=== PATIENT | female | born 1995 | race Caucasian/White ===

== ENCOUNTER 2018-07-23 13:10 | Observation (INO) | payer OTHER ==
[~2018-07-23] VITALS: Ht 168 cm; Wt 74.0 kg
== END 2018-07-23 18:55 | disposition home or self-care (01) ==
LOC: 4S 13:10
PROVIDERS: ADMIT Obstetrics & Gynecology; ATTEND Obstetrics & Gynecology
DX: O62.9 Abnormality of forces of labor, unspecified (principal); Z3A.38 38 weeks gestation of pregnancy

== ENCOUNTER 2018-07-28 02:35 | Inpatient (IN) | payer OTHER ==
[~2018-07-28] VITALS: Ht 167.6 cm; Wt 79.5 kg
[2018-07-28] MEDS ORDERED: OXYTOCIN 20 UNITS/LACT RINGERS 1,000 ML IV ONE (02:46)
[2018-07-28] MEDS ORDERED: LIDOCAINE/PF 1% 30 ML VIAL INJ PRN (03:00)
[2018-07-28] MEDS ORDERED: TERBUTALINE SULFATE 1 MG/ML VIAL SQ PRN (03:00)
[2018-07-28] MEDS ORDERED: AMPICILLIN SODIUM 2 GM/NS 100 ML IV ONE (03:00)
[2018-07-28] MEDS ORDERED: METOCLOPRAMIDE HCL 5 MG/ML 2 ML VIAL IVP PRN (03:00)
[2018-07-28] MEDS ORDERED: CITRIC ACID/SODIUM CITRATE 30 ML SOLUTION UDCUP PO PRN (03:00)
[2018-07-28] MEDS: RINGERS SOLUTION,LACTATED 1,000 ML IV SCH ×2 (03:15→05:09)
[2018-07-28 03:22] VITALS: BP 123/76
[2018-07-28] MEDS ORDERED: OXYTOCIN 30 UNITS/LACT RINGERS 500 ML IV ONE (03:41)
[2018-07-28] MEDS ORDERED: OXYTOCIN 30 UNITS/LACT RINGERS 500 ML IV PRN (03:58)
[2018-07-28] MEDS ORDERED: FentaNYL CITRATE-PF 100 MCG/2 ML VIAL IVP PRN (04:00)
[2018-07-28 04:08] LABS: EOSINOPHILS % (AUTO) 0.3 % (1.0-6.0); HEMATOCRIT 32.1 % (36-46); HEMOGLOBIN 9.9 g/dL (12.0-16.0); LYMPHOCYTES # (AUTO) 2.4 K/uL (1.0-4.8); MEAN CORPUSCULAR HEMOGLOBIN 23.1 pg (26.0-34.0); MEAN CORPUSCULAR HGB CONC 30.8 G/dL (31.0-37.0); MEAN CORPUSCULAR VOLUME 75 fL (80-100); MONOCYTES % (AUTO) 7.4 % (2.0-9.0); NEUTROPHILS # (AUTO) 9.7 K/uL (1.8-7.7); NEUTROPHILS % (AUTO) 74.3 % (40.0-70.0); PLATELET COUNT (AUTO) 161 K/uL (150-450); RED BLOOD CELL COUNT(AUTO) 4.28 MIL/uL (4.00-5.20); RED CELL DISTRIBUTION WIDTH 16.5 % (11.5-14.5)
[2018-07-28] MEDS ORDERED: ROPIVACAINE HCL/PF 0.2% 100 ML ED ONE (04:27)
[2018-07-28] MEDS ORDERED: ONDANSETRON HCL 4 MG/2 ML VIAL IVP PRN (05:00)
[2018-07-28] MEDS ORDERED: ROPIVACAINE HCL/PF 0.2% 100 ML ED PRN (05:00)
[2018-07-28] MEDS ORDERED: DiphenhydrAMINE HCL 50 MG/ML VIAL IVP PRN (05:00)
[2018-07-28 05:09] LABS: PLATELET MORPHOLOGY COMMENT GIANT PLTS PRESENT
[2018-07-28] MEDS ORDERED: AMPICILLIN SODIUM 1 GM/NS 50 ML IV SCH (07:00)
[2018-07-28] MEDS ORDERED: RINGERS SOLUTION,LACTATED 1,000 ML IV ONE (10:29)
[2018-07-28] MEDS ORDERED: BENZOCAINE 20%/MENTHOL 56 GM SPRAY CANISTER TP PRN (10:30)
[2018-07-28] MEDS ORDERED: LANOLIN 7 GM OINTMENT TP PRN (10:30)
[2018-07-28] MEDS ORDERED: GLYCERIN/WITCH HAZEL LEAF 40 PADS JAR TP PRN (10:30)
[2018-07-28] MEDS ORDERED: OxyCODONE HCL/ACETAMINOPHEN 5-325 MG TABLET PO PRN ×2 (10:30)
[2018-07-28] MEDS ORDERED: MEASLES/MUMPS/RUBELLA VACCINE, LIVE 0.5 ML/VIAL SQ ONE (10:30)
[2018-07-28] MEDS: IBUPROFEN 600 MG TABLET PO PRN ×2 (10:44→18:34)
[2018-07-28] MEDS: MAGNESIUM HYDROXIDE SUSPENSION 30 ML UDCUP PO SCH (21:13)
[2018-07-29] MEDS: IBUPROFEN 600 MG TABLET PO PRN (05:21)
[2018-07-29] MEDS: MAGNESIUM HYDROXIDE SUSPENSION 30 ML UDCUP PO SCH (08:44)
[2018-07-29 09:57] LABS: BASOPHILS % (AUTO) 0.2 % (0.0-2.0); EOSINOPHILS % (AUTO) 0.2 % (1.0-6.0); HEMATOCRIT 31.2 % (36-46); HEMOGLOBIN 9.6 g/dL (12.0-16.0); LYMPHOCYTES # (AUTO) 2.3 K/uL (1.0-4.8); MEAN CORPUSCULAR HEMOGLOBIN 23.1 pg (26.0-34.0); MEAN CORPUSCULAR HGB CONC 30.8 G/dL (31.0-37.0); MEAN CORPUSCULAR VOLUME 75 fL (80-100); MONOCYTES # (AUTO) 0.7 K/uL (0.1-1.0); MONOCYTES % (AUTO) 4.9 % (2.0-9.0); NEUTROPHILS # (AUTO) 11.1 K/uL (1.8-7.7); NEUTROPHILS % (AUTO) 78.7 % (40.0-70.0); PLATELET COUNT (AUTO)-OB 158 K/uL (150-450); RED BLOOD CELL COUNT(AUTO) 4.16 MIL/uL (4.00-5.20); RED CELL DISTRIBUTION WIDTH 17.2 % (11.5-14.5)
[2018-07-29] MEDS ORDERED: IBUP-2071 PO (09:57)
[2018-07-29] MEDS ORDERED: DSS100 PO (09:58)
[2018-07-29] MEDS ORDERED: FERR-89 PO (09:58)
== END 2018-07-29 11:00 | disposition home or self-care (01) | DRG 807 ==
LOC: OBSVTOIN 02:35 → 4S 02:35
PROVIDERS: ADMIT Obstetrics & Gynecology; ATTEND Obstetrics & Gynecology
PROC: 10E0XZZ Delivery of Products of Conception, External Approach (ICD-10-PCS; principal; 2018-07-28)
PROC: 0KQM0ZZ Repair Perineum Muscle, Open Approach (ICD-10-PCS; 2018-07-28)
PROC: 3E0R3BZ Introduction of Anesthetic Agent into Spinal Canal, Percutaneous Approach (ICD-10-PCS; 2018-07-28)
PROC: 00HU33Z Insertion of Infusion Device into Spinal Canal, Percutaneous Approach (ICD-10-PCS; 2018-07-28)
PROC: 3E0234Z Introduction of Serum, Toxoid and Vaccine into Muscle, Percutaneous Approach (ICD-10-PCS; 2018-07-28)
DX: O77.0 Labor and delivery complicated by meconium in amniotic fluid (principal); Z37.0 Single live birth; O69.81X0 Labor and delivery complicated by cord around neck, without compression, not applicable or unspecified; O71.82 Other specified trauma to perineum and vulva; Z3A.39 39 weeks gestation of pregnancy; Z23 Encounter for immunization
CPT/HCPCS: 86850; 86900; 86901; 90707; J0290; J2590; J2795; J7120